=== PATIENT | male | born 1940 | race African-American/Black ===

== ENCOUNTER 2019-10-10 12:35 | Emergency (ER) | payer OTHER, MEDICAID ==
[~2019-10-10] VITALS: Ht 175.3 cm; Wt 120.0 kg
[2019-10-10] MEDS ORDERED: SODIUM CHLORIDE 0.9% 1,000 ML IV ONE (13:15)
[2019-10-10 13:33] LABS: BASOPHILS % 0.2 % (0.0-2.0); EOSINOPHILS % 0.1 % (0.0-5.0); HEMATOCRIT. 36.9 % (42.0-52.0); HEMOGLOBIN. 12.2 g/dL (14.0-18.0); LYMPHOCYTES % 10.9 % (20.0-50.0); MEAN CORPUSCULAR HEMOGLOBIN 32.2 pg (28.0-32.0); MEAN CORPUSCULAR VOLUME 97.4 fL (80.0-94.0); MEAN PLATELET VOLUME 8.3 fl (7.4-10.4); MONOCYTES % 8.7 % (2.0-8.0); NEUTROPHILS % 80.1 % (40.0-76.0); PLATELET 262 x1000/uL (130-400); RED BLOOD CELL COUNT 3.79 mill/uL (4.7-6.1); RED CELL DISTRIBUTION WIDTH 14.6 % (11.6-14.6)
[2019-10-10 13:35] LABS: CHLORIDE 108 mEq/L (98-107); INR 1.2; PROTHROMBIN TIME 12.4 sec (9.6-11.0)
[2019-10-10 13:40] LABS: ETHANOL BLOOD < 10 mg/dL
[2019-10-10] MEDS ORDERED: LORAZEPAM 0.5MG TABLET PO ONE (14:15)
[2019-10-10] MEDS ORDERED: ASPIRIN 81MG TABLET PO ONE (14:15)
[2019-10-10 14:42] LABS: *COCAINE SCREEN URINE NEGATIVE (NEGATIVE); METHADONE URINE SCREEN NEGATIVE (NEGATIVE); OPIATES URINE SCREEN NEGATIVE (NEGATIVE)
[2019-10-10 14:43] LABS: *AMPHETAMINES SCREEN URINE NEGATIVE (NEGATIVE); *BARBITURATES SCREEN URINE NEGATIVE (NEGATIVE); *BENZODIAZEPINES SCREEN URINE NEGATIVE (NEGATIVE); CANNABINOID URINE SCREEN NEGATIVE (NEGATIVE); PHENCYCLIDINE URINE SCREEN NEGATIVE (NEGATIVE)
[2019-10-10 17:28] VITALS: BP 148/72
== END 2019-10-10 17:39 | disposition home or self-care (01) ==
LOC: ER 13:00
DX: R00.2 Palpitations (principal); R03.0 Elevated blood-pressure reading, without diagnosis of hypertension; J98.11 Atelectasis
CPT/HCPCS: 36415; 71045; 71275; 80053; 80305; 80320; 83880; 84484; 85025; 85610; 93005; 99284; J7030; G0480

== ENCOUNTER 2019-11-17 14:03 | Emergency (ER) | payer OTHER, MEDICAID ==
[~2019-11-17] VITALS: Ht 177.8 cm; Wt 95.0 kg
[2019-11-17 14:52] LABS: BASOPHILS % 0.8 % (0.0-2.0); EOSINOPHILS % 1.7 % (0.0-5.0); HEMATOCRIT. 37.1 % (42.0-52.0); HEMOGLOBIN. 12.6 g/dL (14.0-18.0); LYMPHOCYTES % 32.1 % (20.0-50.0); MEAN CORPUSCULAR HEMOGLOBIN 31.9 pg (28.0-32.0); MEAN CORPUSCULAR VOLUME 93.7 fL (80.0-94.0); MEAN PLATELET VOLUME 8.4 fl (7.4-10.4); MONOCYTES % 11.6 % (2.0-8.0); NEUTROPHILS % 53.8 % (40.0-76.0); PLATELET 205 x1000/uL (130-400); RED BLOOD CELL COUNT 3.96 mill/uL (4.7-6.1); RED CELL DISTRIBUTION WIDTH 15.6 % (11.6-14.6)
[2019-11-17 15:01] LABS: CHLORIDE 106 mEq/L (98-107); INR 1.1; PARTIAL THROMBOPLASTIN TIME 38.5 sec (23.4-31.0)
[2019-11-17 15:05] LABS: ETHANOL BLOOD < 10 mg/dL
[2019-11-17] MEDS ORDERED: FUROSEMIDE 20MG/2ML VIAL IVP ONE (15:15)
[2019-11-17 18:01] VITALS: BP 163/74
== END 2019-11-17 17:59 | disposition short-term general hospital (02) ==
LOC: ER 14:03 → CANBEDREQ 16:57 → ER 17:59
DX: J44.9 Chronic obstructive pulmonary disease, unspecified (principal); R07.89 Other chest pain; R00.0 Tachycardia, unspecified; I11.9 Hypertensive heart disease without heart failure; I49.49 Other premature depolarization
CPT/HCPCS: 36415; 71045; 80053; 80320; 83880; 84484; 85025; 85610; 85730; 93005; 96374; 99285; J1940; 80305; G0480

== ENCOUNTER 2020-07-05 01:05 | Emergency (ER) | payer OTHER, MEDICAID ==
[~2020-07-05] VITALS: Ht 175.3 cm; Wt 106.0 kg
[2020-07-05 01:57] LABS: BASOPHILS % 0.8 % (0.0-2.0); EOSINOPHILS % 1.8 % (0.0-5.0); HEMOGLOBIN. 11.6 g/dL (14.0-18.0); LYMPHOCYTES % 19.4 % (20.0-50.0); MEAN CORPUSCULAR HEMOGLOBIN 33.6 pg (28.0-32.0); MEAN CORPUSCULAR VOLUME 98.6 fL (80.0-94.0); MEAN PLATELET VOLUME 7.1 fl (7.4-10.4); MONOCYTES % 12.6 % (2.0-8.0); NEUTROPHILS % 65.4 % (40.0-76.0); PLATELET 227 x1000/uL (130-400); RED BLOOD CELL COUNT 3.44 mill/uL (4.7-6.1); RED CELL DISTRIBUTION WIDTH 15.9 % (11.6-14.6)
[2020-07-05 05:56] LABS: CHLORIDE 107 mEq/L (98-107)
[2020-07-05 06:07] VITALS: BP 128/68
[2020-07-05 06:25] LABS: PARTIAL THROMBOPLASTIN TIME 29.1 sec (23.4-31.0); PROTHROMBIN TIME 10.8 sec (9.6-11.0)
== END 2020-07-05 06:28 | disposition home or self-care (01) ==
LOC: ER 01:05
DX: N49.2 Inflammatory disorders of scrotum (principal); J44.9 Chronic obstructive pulmonary disease, unspecified; I11.9 Hypertensive heart disease without heart failure
CPT/HCPCS: 36415; 76870; 80053; 84484; 85025; 93005; 93976; 99285

== ENCOUNTER 2021-01-24 16:51 | Emergency (ER) | payer OTHER, MEDICAID ==
[~2021-01-24] VITALS: Ht 185.4 cm; Wt 136.0 kg
[2021-01-24] MEDS ORDERED: AMLODIPINE 5MG TABLET PO ONE (17:45)
[2021-01-24 18:20] LABS: BASOPHILS % 0.5 % (0.0-2.0); HEMATOCRIT. 37.4 % (42.0-52.0); HEMOGLOBIN. 12.4 g/dL (14.0-18.0); MEAN CORPUSCULAR HEMOGLOBIN 30.8 pg (28.0-32.0); MEAN CORPUSCULAR VOLUME 92.7 fL (80.0-94.0); MEAN PLATELET VOLUME 8.3 fl (7.4-10.4); MONOCYTES % 9.7 % (2.0-8.0); NEUTROPHILS % 60.8 % (40.0-76.0); PLATELET 191 x1000/uL (130-400); RED BLOOD CELL COUNT 4.03 mill/uL (4.7-6.1); RED CELL DISTRIBUTION WIDTH 15.2 % (11.6-14.6)
[2021-01-24 18:27] LABS: CHLORIDE 107 mEq/L (98-107)
[2021-01-24 21:15] VITALS: BP 161/78
[2021-01-24] MEDS ORDERED: AMLO5TAB88 MT (21:57)
== END 2021-01-25 00:31 | disposition home or self-care (01) ==
LOC: ER 16:51
DX: R53.1 Weakness (principal); R42 Dizziness and giddiness; R10.9 Unspecified abdominal pain; I10 Essential (primary) hypertension; J45.909 Unspecified asthma, uncomplicated; Z86.59 Personal history of other mental and behavioral disorders
CPT/HCPCS: 36415; 80053; 83880; 84484; 85025; 93005; 99284

== ENCOUNTER 2021-08-06 09:07 | Inpatient (IN) | payer OTHER, MEDICAID ==
[~2021-08-06] VITALS: Ht 172.7 cm; Wt 106.6 kg
[~2021-08-06 09:07] MED LIST: AMLO5TAB88 MT
[2021-08-06] MEDS ORDERED: LEVETIRACETAM 1000MG PREMIX 100 ML IV ONE (09:30)
[2021-08-06 10:36] LABS: BASOPHILS % 0.4 % (0.0-2.0); EOSINOPHILS % 1.3 % (0.0-5.0); HEMATOCRIT. 34.3 % (42.0-52.0); HEMOGLOBIN. 11.6 g/dL (14.0-18.0); MEAN CORPUSCULAR HEMOGLOBIN 30.8 pg (28.0-32.0); MEAN CORPUSCULAR VOLUME 91.3 fL (80.0-94.0); MEAN PLATELET VOLUME 8.5 fl (7.4-10.4); MONOCYTES % 13.6 % (2.0-8.0); NEUTROPHILS % 68.7 % (40.0-76.0); PLATELET 226 x1000/uL (130-400); RED BLOOD CELL COUNT 3.76 mill/uL (4.7-6.1); RED CELL DISTRIBUTION WIDTH 17.3 % (11.6-14.6)
[2021-08-06 10:42] LABS: CHLORIDE 107 mEq/L (98-107)
[2021-08-06 10:49] LABS: ETHANOL BLOOD < 10 mg/dL
[2021-08-06] MEDS ORDERED: SODIUM CHLORIDE 0.9% 1,000 ML IV ONE (11:45)
[2021-08-06 13:11] LABS: CLARITY URINE CLOUDY (CLEAR); COLOR URINE YELLOW (YELLOW); KETONES URINE NEGATIVE (NEGATIVE); LEUKOCYTE ESTERASE URINE 3+ (NEGATIVE); NITRITE URINE POSITIVE (NEGATIVE); OCCULT BLOOD URINE TRACE (NEGATIVE); PH URINE 6.5 (4.5-8.0); PROTEIN URINE NEGATIVE (NEGATIVE); SPECIFIC GRAVITY URINE 1.012 (1.005-1.030); UROBILINOGEN URINE 0.2 E.U./dL (0.2-1.0)
[2021-08-06 14:38] LABS: *AMPHETAMINES SCREEN URINE NEGATIVE (NEGATIVE); *BARBITURATES SCREEN URINE NEGATIVE (NEGATIVE); *BENZODIAZEPINES SCREEN URINE NEGATIVE (NEGATIVE); *COCAINE SCREEN URINE NEGATIVE (NEGATIVE); METHADONE URINE SCREEN NEGATIVE (NEGATIVE); OPIATES URINE SCREEN NEGATIVE (NEGATIVE)
[2021-08-06 14:39] LABS: CANNABINOID URINE SCREEN NEGATIVE (NEGATIVE); PHENCYCLIDINE URINE SCREEN NEGATIVE (NEGATIVE)
[2021-08-06 15:11] LABS: CREATINE KINASE 232 IU/L (39-308)
[2021-08-06 16:02] LABS: INR 1.1; PROTHROMBIN TIME 11.9 sec (9.6-11.0)
[2021-08-06 16:12] LABS: CHLORIDE 110 mEq/L (98-107)
[2021-08-06 16:22] LABS: CREATINE KINASE 176 IU/L (39-308)
[2021-08-06] MEDS ORDERED: CEFTRIAXONE 1 G PREMIX 50 ML IV NR (17:00)
[2021-08-06 20:00] VITALS: BP 170/96
[2021-08-06 20:38] VITALS: BP 170/96
[2021-08-06] MEDS ORDERED: ONDANSETRON HCL 4MG/2ML INJ IV PRN (20:45)
[2021-08-06] MEDS ORDERED: IPRATROPIUM/ALBUTEROL 0.5-3(2.5)MG/3ML NEB HHN PRN (20:45)
[2021-08-06] MEDS ORDERED: MAGNESIUM HYDROXIDE 400MG/5ML 30ML UDC PO PRN (20:45)
[2021-08-06] MEDS ORDERED: GUAIFENESIN 200MG/10ML SUGAR FREE UDC PO PRN (20:45)
[2021-08-06] MEDS ORDERED: BUDESONIDE 0.5MG/2ML NEB HHN SCH (20:45)
[2021-08-06] MEDS ORDERED: DIPHENHYDRAMINE 50MG/ML VIAL IV PRN (20:45)
[2021-08-06] MEDS ORDERED: CLONIDINE 0.1MG TABLET PO PRN (20:45)
[2021-08-06] MEDS ORDERED: ACETAMINOPHEN 325MG TABLET PO PRN ×2 (20:45)
[2021-08-06] MEDS ORDERED: PIPERACILLIN/TAZ 3.375G PREMIX 50 ML IV SCH (22:00)
[2021-08-06] MEDS ORDERED: ENOXAPARIN 40MG/0.4ML SYR SUBCUT SCH (22:00)
[2021-08-06] MEDS: ATORVASTATIN CALCIUM 40MG TABLET PO SCH (22:36)
[2021-08-06] MEDS: QUETIAPINE FUMARATE 25MG TABLET PO SCH (22:37)
[2021-08-06] MEDS: SODIUM CHLORIDE 0.9% INJ 3ML FLUSH IVF SCH (22:37)
[2021-08-06] MEDS ORDERED: PIPERACILLIN/TAZOBACTAM 3.375G in DEXT 5% WATER 50ML IV SCH (23:00)
[2021-08-06] MEDS ORDERED: *PATIENT'S OWN MEDICATION STORAGE XX SCH (23:45)
[2021-08-07] VITALS (8 sets, daily range): BP systolic 68–168; BP diastolic 59–74
[2021-08-07] MEDS ORDERED: ATOR-2 PO (00:22)
[2021-08-07] MEDS ORDERED: ASPI-1497 PO (00:22)
[2021-08-07] MEDS ORDERED: LISI-186 PO (00:22)
[2021-08-07] MEDS ORDERED: QUET25TA PO (00:22)
[2021-08-07] MEDS ORDERED: FLUT1AER4 INH (00:23)
[2021-08-07] MEDS ORDERED: TERA5CAP4 MT (00:23)
[2021-08-07] MEDS ORDERED: PIPERACILLIN/TAZOBACTAM 3.375G in DEXT 5% WATER 50ML IV SCH (06:00)
[2021-08-07] MEDS: SODIUM CHLORIDE 0.9% INJ 3ML FLUSH IVF SCH ×2 (06:00→21:58)
[2021-08-07] MEDS: PIPERACILLIN/TAZOBACTAM 3.375G in DEXT 5% WATER 50ML IV SCH ×2 (08:52→19:09)
[2021-08-07] MEDS: DOCUSATE SODIUM 100MG CAPSULE PO SCH ×2 (08:53→17:34)
[2021-08-07] MEDS: QUETIAPINE FUMARATE 25MG TABLET PO SCH ×2 (08:54→21:56)
[2021-08-07] MEDS ORDERED: AMLODIPINE 5MG TABLET PO SCH (09:00)
[2021-08-07] MEDS ORDERED: ASPIRIN 81MG EC TABLET PO SCH (09:00)
[2021-08-07] MEDS ORDERED: LISINOPRIL 5MG TABLET PO SCH (09:00)
[2021-08-07] MEDS: TERAZOSIN HCL 5MG CAPSULE PO SCH ×2 (10:29→17:34)
[2021-08-07] MEDS ORDERED: ENOXAPARIN 30MG/0.3ML SYR SUBCUT SCH (21:00)
[2021-08-07] MEDS: ATORVASTATIN CALCIUM 40MG TABLET PO SCH (21:56)
== END 2021-08-07 23:35 | disposition short-term general hospital (02) | DRG 872 ==
LOC: ER 09:07 → EDBEDREQ 17:16 → EDBEDREQTM 17:16 → ENRESERV 19:10 → 6WST 20:57
PROVIDERS: ADMIT Internal Medicine; ATTEND Internal Medicine
DX: A41.9 Sepsis, unspecified organism (principal); N39.0 Urinary tract infection, site not specified; K61.1 Rectal abscess; I50.32 Chronic diastolic (congestive) heart failure; J44.9 Chronic obstructive pulmonary disease, unspecified; I50.9 Heart failure, unspecified; I11.0 Hypertensive heart disease with heart failure; L73.2 Hidradenitis suppurativa; E78.00 Pure hypercholesterolemia, unspecified; M19.90 Unspecified osteoarthritis, unspecified site; N40.0 Benign prostatic hyperplasia without lower urinary tract symptoms; M10.9 Gout, unspecified; I25.10 Atherosclerotic heart disease of native coronary artery without angina pectoris; R56.9 Unspecified convulsions; Z20.822 Contact with and (suspected) exposure to COVID-19; F99 Mental disorder, not otherwise specified; I27.20 Pulmonary hypertension, unspecified; R62.7 Adult failure to thrive; Z68.35 Body mass index [BMI] 35.0-35.9, adult
CPT/HCPCS: 36415; 71045; 80053; 80305; 80320; 81003; 82550; 82962; 83605; 84145; 84484; 85025; 87077; 87186; 87426; 93005; 93306; 93970; 99285; C1893; J0696; J1650; J1953; J2543; J7030; J7060; J7626; G0480

== ENCOUNTER 2021-08-22 11:42 | Emergency (ER) | payer OTHER, MEDICAID ==
[~2021-08-22] VITALS: Ht 185.4 cm; Wt 91.0 kg
[~2021-08-22 11:42] MED LIST changes: +ASPI-1497 PO; +ATOR-2 PO; +FLUT1AER4 INH; +LISI-186 PO; +QUET25TA PO; +TERA5CAP4 MT
[2021-08-22 15:04] LABS: BASOPHILS % 0.5 % (0.0-2.0); EOSINOPHILS % 1.1 % (0.0-5.0); HEMATOCRIT. 36.6 % (42.0-52.0); LYMPHOCYTES % 11.2 % (20.0-50.0); MEAN CORPUSCULAR HEMOGLOBIN 29.6 pg (28.0-32.0); MEAN CORPUSCULAR VOLUME 90.5 fL (80.0-94.0); MEAN PLATELET VOLUME 8.4 fl (7.4-10.4); MONOCYTES % 10.2 % (2.0-8.0); PLATELET 210 x1000/uL (130-400); RED BLOOD CELL COUNT 4.04 mill/uL (4.7-6.1); RED CELL DISTRIBUTION WIDTH 17.3 % (11.6-14.6)
[2021-08-22 15:09] LABS: CHLORIDE 109 mEq/L (98-107)
[2021-08-22] MEDS ORDERED: DOXYCYCLINE HYCLATE 100 MG/VIAL IV ONE (17:30)
[2021-08-22] MEDS ORDERED: FUROSEMIDE 20MG/2ML VIAL IVP ONE (17:30)
[2021-08-22] MEDS ORDERED: CEFTRIAXONE 1 G PREMIX 50 ML IV ONE (17:30)
[2021-08-22] MEDS ORDERED: DOXYCYCLINE 100MG in DEXTROSE 5% WATER 100ML IV NR (17:34)
[2021-08-22 22:59] VITALS: BP 153/83
== END 2021-08-22 23:59 | disposition short-term general hospital (02) ==
LOC: ER 11:42 → CANBEDREQ 08-23 05:22
DX: I11.0 Hypertensive heart disease with heart failure (principal); I50.9 Heart failure, unspecified; J45.909 Unspecified asthma, uncomplicated; I48.91 Unspecified atrial fibrillation; Z20.822 Contact with and (suspected) exposure to COVID-19; Z79.01 Long term (current) use of anticoagulants; Z79.82 Long term (current) use of aspirin
CPT/HCPCS: 36415; 71045; 80053; 83880; 84484; 85025; 87426; 93005; 96365; 96375; 99285; J0696; J1940; J3490; J7060

== ENCOUNTER 2021-09-21 01:38 | Emergency (ER) | payer OTHER, MEDICAID ==
[~2021-09-21] VITALS: Ht 182.9 cm; Wt 84.0 kg
[2021-09-21] MEDS ORDERED: CEFTRIAXONE 1 G PREMIX 50 ML IV ONE (02:00)
[2021-09-21] MEDS ORDERED: FUROSEMIDE 40MG/4ML VIAL IVP ONE ×2 (02:00→02:15)
[2021-09-21] MEDS ORDERED: AZITHROMYCIN 500MG/250ML 250 ML IV ONE (02:00)
[2021-09-21 02:52] LABS: BASOPHILS % 0.2 % (0.0-2.0); EOSINOPHILS % 0.9 % (0.0-5.0); HEMATOCRIT. 34.6 % (42.0-52.0); HEMOGLOBIN. 11.4 g/dL (14.0-18.0); LYMPHOCYTES % 16.6 % (20.0-50.0); MEAN CORPUSCULAR VOLUME 91.1 fL (80.0-94.0); MEAN PLATELET VOLUME 10.2 fl (7.4-10.4); MONOCYTES % 7.4 % (2.0-8.0); NEUTROPHILS % 74.9 % (40.0-76.0); PLATELET 112 x1000/uL (130-400); RED CELL DISTRIBUTION WIDTH 18.2 % (11.6-14.6)
[2021-09-21 02:58] LABS: CHLORIDE 111 mEq/L (98-107)
[2021-09-21 03:03] LABS: INR 1.2; PROTHROMBIN TIME 13.1 sec (9.6-11.0)
[2021-09-21 03:07] LABS: CREATINE KINASE 75 IU/L (39-308)
[2021-09-21 05:09] LABS: CLARITY URINE CLOUDY (CLEAR); COLOR URINE YELLOW (YELLOW); KETONES URINE NEGATIVE (NEGATIVE); LEUKOCYTE ESTERASE URINE 3+ (NEGATIVE); NITRITE URINE POSITIVE (NEGATIVE); OCCULT BLOOD URINE 1+ (NEGATIVE); PROTEIN URINE 1+ (NEGATIVE); SPECIFIC GRAVITY URINE 1.013 (1.005-1.030); UROBILINOGEN URINE 0.2 E.U./dL (0.2-1.0)
[2021-09-21] MEDS ORDERED: IOHEXOL-350 100 ML BOTTLE ONE (05:58)
[2021-09-21 09:42] VITALS: BP 122/63
== END 2021-09-21 09:58 | disposition short-term general hospital (02) ==
LOC: ER 02:13 → CANBEDREQ 06:44 → ER 09:58
DX: J18.9 Pneumonia, unspecified organism (principal); R04.2 Hemoptysis; Z20.822 Contact with and (suspected) exposure to COVID-19; I10 Essential (primary) hypertension
CPT/HCPCS: 36415; 71045; 71275; 80053; 81003; 82550; 83605; 83880; 84145; 84484; 85025; 85610; 87040; 87077; 87086; 87186; 87426; 87804; 93005; 96365; 96368; 96375; 99285; J0456; J0696; J1940; Q9967

== ENCOUNTER 2022-09-15 15:03 | Emergency (ER) | payer OTHER, MEDICAID ==
[~2022-09-15] VITALS: Ht 185.4 cm; Wt 100.0 kg
[2022-09-15] MEDS ORDERED: IOHEXOL-350 100 ML BOTTLE ONE (17:26)
[2022-09-15 18:10] LABS: BASOPHILS % 0.3 % (0.0-2.0); EOSINOPHILS % 1.5 % (0.0-5.0); HEMATOCRIT. 41.2 % (42.0-52.0); HEMOGLOBIN. 13.7 g/dL (14.0-18.0); LYMPHOCYTES % 15.9 % (20.0-50.0); MEAN CORPUSCULAR HEMOGLOBIN 32.2 pg (28.0-32.0); MEAN CORPUSCULAR VOLUME 96.4 fL (80.0-94.0); MEAN PLATELET VOLUME 8.4 fl (7.4-10.4); MONOCYTES % 11.4 % (2.0-8.0); NEUTROPHILS % 70.9 % (40.0-76.0); PLATELET 205 x1000/uL (130-400); RED BLOOD CELL COUNT 4.27 mill/uL (4.7-6.1); RED CELL DISTRIBUTION WIDTH 14.2 % (11.6-14.6)
[2022-09-15 18:15] LABS: CHLORIDE 104 mEq/L (98-107)
[2022-09-15] MEDS ORDERED: ACETAMINOPHEN 325MG TABLET PO ONE (18:15)
[2022-09-15 18:26] LABS: ETHANOL BLOOD < 10 mg/dL
[2022-09-15 20:35] LABS: CLARITY URINE TURBID (CLEAR); COLOR URINE YELLOW (YELLOW); KETONES URINE 1+ (NEGATIVE); LEUKOCYTE ESTERASE URINE 3+ (NEGATIVE); NITRITE URINE POSITIVE (NEGATIVE); OCCULT BLOOD URINE 1+ (NEGATIVE); PROTEIN URINE 2+ (NEGATIVE); SPECIFIC GRAVITY URINE 1.037 (1.005-1.030); UROBILINOGEN URINE 0.2 E.U./dL (0.2-1.0)
[2022-09-15 20:50] LABS: *AMPHETAMINES SCREEN URINE NEGATIVE (NEGATIVE); *BARBITURATES SCREEN URINE NEGATIVE (NEGATIVE); *BENZODIAZEPINES SCREEN URINE NEGATIVE (NEGATIVE); *COCAINE SCREEN URINE NEGATIVE (NEGATIVE); CANNABINOID URINE SCREEN NEGATIVE (NEGATIVE); METHADONE URINE SCREEN NEGATIVE (NEGATIVE); OPIATES URINE SCREEN NEGATIVE (NEGATIVE); PHENCYCLIDINE URINE SCREEN NEGATIVE (NEGATIVE)
[2022-09-15] MEDS ORDERED: LIDOCAINE 5% PATCH TOP SCH (21:00)
[2022-09-16 08:50] VITALS: BP 166/67
[2022-09-16] MEDS ORDERED: LISINOPRIL 5MG TABLET PO ONE (09:30)
== END 2022-09-16 08:56 | disposition short-term general hospital (02) ==
LOC: ER 15:03 → EDBEDREQTM 17:39 → EDBEDREQ 17:39 → EDBEDREQSVC 17:39 → ER 09-16 08:56
DX: I63.9 Cerebral infarction, unspecified (principal); I10 Essential (primary) hypertension; J45.909 Unspecified asthma, uncomplicated; Z20.822 Contact with and (suspected) exposure to COVID-19; Z79.82 Long term (current) use of aspirin
CPT/HCPCS: 36415; 70450; 70496; 70498; 71045; 80053; 80305; 80320; 81003; 82962; 83880; 84484; 85025; 87077; 87086; 87186; 87426; 93005; 99291; Q9967; G0480

== ENCOUNTER 2024-04-01 06:12 | Emergency (ER) | payer OTHER ==
[~2024-04-01] VITALS: Ht 177.8 cm; Wt 91.0 kg
[2024-04-01 06:16] VITALS: O2SAT 99
[2024-04-01 07:19] LABS: HEMATOCRIT. 26.8 % (42.0-52.0); HEMOGLOBIN. 8.8 g/dL (14.0-18.0); MEAN CORPUSCULAR HEMOGLOBIN 30.3 pg (28.0-32.0); MEAN CORPUSCULAR HGB CONC 32.9 g/dL (31.0-37.0); MEAN CORPUSCULAR VOLUME 92.2 fL (80.0-94.0); MEAN PLATELET VOLUME 8.3 fl (7.4-10.4); PLATELET 284 x1000/uL (130-400); WHITE BLOOD COUNT 6.2 x1000/uL (4.5-11.0)
[2024-04-01 07:22] LABS: INR 1.2; PROTHROMBIN TIME 13.1 sec (9.6-11.0)
[2024-04-01 07:26] LABS: DIFFERENTIAL COMMENT 1
[2024-04-01 07:27] LABS: CHLORIDE 105 mEq/L (98-107); POTASSIUM 4.5 mEq/L (3.5-5.1); SODIUM 141 mEq/L (136-145)
[2024-04-01 07:28] LABS: CALCIUM 8.5 mg/dL (8.7-10.4); CARBON DIOXIDE 30 mEq/L (21-32)
[2024-04-01 07:33] LABS: CREATININE 1.4 mg/dL (0.6-1.3); GLUCOSE 109 mg/dL (70-105); UREA NITROGEN BLOOD 26 mg/dL (9-23)
[2024-04-01 07:35] LABS: PHOSPHORUS 3.2 mg/dL (2.5-4.9); TROPONIN I HIGH SENSITIVITY 15 ng/L (3.0-53)
[2024-04-01 09:59] LABS: TROPONIN I HIGH SENSITIVITY 13 ng/L (3.0-53)
[2024-04-01 12:53] LABS: ANISOCYTOSIS 1+; PLATELET ESTIMATE NORMAL
[2024-04-01 13:30] VITALS: BP 141/61; PULSE 63; RESP 17; TEMP 98.4
== END 2024-04-01 13:08 | disposition short-term general hospital (02) ==
LOC: ER 06:30 → UNDOADMIN 09:44 → 5WST 09:44 → EDBEDREQ 09:46 → EDBEDREQTM 09:46 → UNDODISIN 12:09
DX: R55 Syncope and collapse (principal); D64.9 Anemia, unspecified; J45.909 Unspecified asthma, uncomplicated; F03.90 Unspecified dementia, unspecified severity, without behavioral disturbance, psychotic disturbance, mood disturbance, and anxiety; I10 Essential (primary) hypertension
CPT/HCPCS: 36415; 71045; 80048; 83735; 83880; 84100; 84484; 85025; 93005; 99285

== ENCOUNTER 2024-08-16 08:03 | Inpatient (IN) | payer OTHER, MEDICAID ==
[2024-08-15 20:50] VITALS: BP 177/83; PULSE 70; RESP 14; TEMP 36.6404
[~2024-08-16] VITALS: Ht 177.8 cm; Wt 89.8 kg
[2024-08-16] MEDS: METHYLPREDNISOLONE SOD SUCC 125MG/2ML (ACT-O-VIAL) IV STA (09:03)
[2024-08-16 09:22] LABS: BASOPHILS % 0.6 % (0.0-2.0); HEMATOCRIT. 31.7 % (42.0-52.0); HEMOGLOBIN. 10.4 g/dL (14.0-18.0); LYMPHOCYTES % 17.9 % (20.0-50.0); MEAN CORPUSCULAR HEMOGLOBIN 27.4 pg (28.0-32.0); MEAN CORPUSCULAR HGB CONC 32.8 g/dL (31.0-37.0); MEAN CORPUSCULAR VOLUME 83.5 fL (80.0-94.0); MEAN PLATELET VOLUME 8.3 fl (7.4-10.4); MONOCYTES % 9.1 % (2.0-8.0); NEUTROPHILS % 70.4 % (40.0-76.0); PLATELET 199 x1000/uL (130-400); RED BLOOD CELL COUNT 3.79 mill/uL (4.7-6.1); RED CELL DISTRIBUTION WIDTH 20.5 % (11.6-14.6); WHITE BLOOD COUNT 8.2 x1000/uL (4.5-11.0)
[2024-08-16 09:39] VITALS: PULSE 65; RESP 20; O2SAT 99
[2024-08-16 09:39] LABS: CARBON DIOXIDE 27 mEq/L (21-32); CHLORIDE 110 mEq/L (98-107); POTASSIUM 3.8 mEq/L (3.5-5.1); SODIUM 142 mEq/L (136-145)
[2024-08-16] MEDS: IPRATROPIUM BROMIDE (0.02%) 0.5MG/2.5ML NEB HHN STA (09:39)
[2024-08-16] MEDS: ALBUTEROL (0.083%) 2.5MG/3ML NEB HHN SCH (09:39)
[2024-08-16 09:40] LABS: CALCIUM 8.8 mg/dL (8.7-10.4)
[2024-08-16 09:45] LABS: CREATININE 0.9 mg/dL (0.6-1.3); GLUCOSE 115 mg/dL (70-105); TROPONIN I HIGH SENSITIVITY 16 ng/L (3.0-53); UREA NITROGEN BLOOD 14 mg/dL (9-23)
[2024-08-16 09:59] VITALS: PULSE 67; RESP 20; O2SAT 100
[2024-08-16 11:01] LABS: TROPONIN I HIGH SENSITIVITY 15 ng/L (3.0-53)
[2024-08-16] MEDS ORDERED: NA PHOS,M-B/NA PHOS,DI-BA ENEMA 118ML PR PRN (11:15)
[2024-08-16] MEDS ORDERED: ACETAMINOPHEN 325MG TABLET PO PRN (11:15)
[2024-08-16] MEDS ORDERED: DOCUSATE SODIUM 100MG CAPSULE PO PRN (11:15)
[2024-08-16] MEDS ORDERED: LORAZEPAM 0.5MG TABLET PO PRN (11:15)
[2024-08-16] MEDS ORDERED: MAGNESIUM/ALUMINUM HYDROXIDE/SIMETHICONE 30ML UDC PO PRN (11:15)
[2024-08-16] MEDS ORDERED: GUAIFENESIN 200MG/10ML SUGAR FREE UDC PO PRN (11:15)
[2024-08-16] MEDS ORDERED: IPRATROPIUM/ALBUTEROL 0.5-3(2.5)MG/3ML NEB HHN PRN (11:15)
[2024-08-16] MEDS: IPRATROPIUM/ALBUTEROL 0.5-3(2.5)MG/3ML NEB HHN SCH (12:00)
[2024-08-16 12:08] LABS: IRON 40 ug/dL (65-175)
[2024-08-16 12:09] LABS: TRIGLYCERIDE 48 mg/dL (0-150)
[2024-08-16 12:10] LABS: LDL CHOLESTEROL 56 mg/dL (5-100)
[2024-08-16 12:11] LABS: ALANINE AMINOTRANSFERASE 7 IU/L (10-49); ALBUMIN 3.8 g/dL (3.2-4.8); ASPARTATE AMINOTRANSFERASE 16 IU/L (<34); BILIRUBIN DIRECT 0.1 mg/dL (<=3.0); BILIRUBIN TOTAL 0.5 mg/dL (0.1-1.0); CHOLESTEROL 129 mg/dL (<200); HDL CHOLESTEROL 61 mg/dL (>55); PHOSPHORUS 3.1 mg/dL (2.5-4.9); PROTEIN TOTAL 6.7 g/dL (6.0-8.3); TOTAL IRON BINDING CAPACITY 259 ug/dl (250-425)
[2024-08-16 12:12] LABS: PROTHROMBIN TIME 11.6 sec (9.6-11.0)
[2024-08-16 12:15] LABS: T4 FREE 1.36 ng/dL (0.89-1.76); THYROID STIMULATING HORMONE 0.63 uIU/mL (0.55-4.78)
[2024-08-16] MEDS: ACETAMINOPHEN 325MG TABLET PO PRN (12:22)
[2024-08-16] MEDS: AMLODIPINE 5MG TABLET PO SCH (12:25)
[2024-08-16 12:27] LABS: CLARITY URINE CLEAR (CLEAR); COLOR URINE YELLOW (YELLOW); GLUCOSE URINE NEGATIVE (NEGATIVE); KETONES URINE NEGATIVE (NEGATIVE); LEUKOCYTE ESTERASE URINE NEGATIVE (NEGATIVE); NITRITE URINE NEGATIVE (NEGATIVE); OCCULT BLOOD URINE NEGATIVE (NEGATIVE); PROTEIN URINE NEGATIVE (NEGATIVE); SPECIFIC GRAVITY URINE 1.011 (1.005-1.030); UROBILINOGEN URINE 0.2 E.U./dL (0.2-1.0)
[2024-08-16 12:42] LABS: *AMPHETAMINES SCREEN URINE NEGATIVE (NEGATIVE); *BARBITURATES SCREEN URINE NEGATIVE (NEGATIVE); *BENZODIAZEPINES SCREEN URINE NEGATIVE (NEGATIVE); *COCAINE SCREEN URINE NEGATIVE (NEGATIVE); CANNABINOID URINE SCREEN NEGATIVE (NEGATIVE); ECSTASY MDMA SCREEN URINE NEGATIVE (NEGATIVE); METHADONE URINE SCREEN NEGATIVE (NEGATIVE); OPIATES URINE SCREEN NEGATIVE (NEGATIVE); PHENCYCLIDINE URINE SCREEN NEGATIVE (NEGATIVE)
[2024-08-16] MEDS ORDERED: AZITHROMYCIN 500MG/250ML 250 ML IV SCH (13:00)
[2024-08-16] MEDS: CEFTRIAXONE 1GM/50ML 50 ML IV SCH (14:25)
[2024-08-16] MEDS: PANTOPRAZOLE SODIUM 40 MG/VIAL IV SCH (14:25)
[2024-08-16] MEDS: LISINOPRIL 10MG TABLET PO SCH (14:26)
[2024-08-16] MEDS: ENOXAPARIN 40MG/0.4ML SYR SUBCUT SCH (14:27)
[2024-08-16] MEDS ORDERED: ALBUTEROL (0.083%) 2.5MG/3ML NEB HHN PRN (15:15)
[2024-08-16] MEDS: METHYLPREDNISOLONE SOD SUCC 40MG/ML (ACT-O-VIAL) IV SCH (16:09)
[2024-08-16 16:17] LABS: CREATINE KINASE MB FRACTION 3.7 ng/mL (0.5-3.6); LACTIC ACID 3.1 mmol/L (0.4-2.0)
[2024-08-16 16:35] VITALS: PULSE 84; RESP 16; O2SAT 98
[2024-08-16 20:16] VITALS: PULSE 84; RESP 18; O2SAT 98
[2024-08-16] MEDS: TERAZOSIN HCL 5MG CAPSULE PO SCH (21:14)
[2024-08-16] MEDS: ATORVASTATIN CALCIUM 20MG TABLET PO SCH (21:14)
[2024-08-16] MEDS: QUETIAPINE FUMARATE 25MG TABLET PO SCH (21:14)
[2024-08-16 22:41] VITALS: BP 146/66; PULSE 60; RESP 14; O2SAT 97
[2024-08-17] VITALS (9 sets, daily range): BP systolic 129–175; BP diastolic 41–83; PULSE 60–91; RESP 13–22; TEMP 36.33624–37.00296; O2SAT 95–100
[2024-08-17 00:19] LABS: CREATINE KINASE MB FRACTION 4.3 ng/mL (0.5-3.6)
[2024-08-17 07:55] LABS: CHLORIDE 107 mEq/L (98-107); POTASSIUM 3.9 mEq/L (3.5-5.1); SODIUM 142 mEq/L (136-145)
[2024-08-17 07:56] LABS: CARBON DIOXIDE 25 mEq/L (21-32)
[2024-08-17 07:57] LABS: CALCIUM 8.9 mg/dL (8.7-10.4)
[2024-08-17 08:01] LABS: GLUCOSE 139 mg/dL (70-105)
[2024-08-17 08:02] LABS: UREA NITROGEN BLOOD 12 mg/dL (9-23)
[2024-08-17 08:04] LABS: BASOPHILS % 0.1 % (0.0-2.0); HEMATOCRIT. 30.1 % (42.0-52.0); HEMOGLOBIN. 9.4 g/dL (14.0-18.0); LYMPHOCYTES % 9.1 % (20.0-50.0); MEAN CORPUSCULAR HEMOGLOBIN 26.2 pg (28.0-32.0); MEAN CORPUSCULAR HGB CONC 31.4 g/dL (31.0-37.0); MEAN CORPUSCULAR VOLUME 83.5 fL (80.0-94.0); MEAN PLATELET VOLUME 8.4 fl (7.4-10.4); MONOCYTES % 2.7 % (2.0-8.0); NEUTROPHILS % 88.1 % (40.0-76.0); PLATELET 191 x1000/uL (130-400); RED CELL DISTRIBUTION WIDTH 20.3 % (11.6-14.6); WHITE BLOOD COUNT 7.1 x1000/uL (4.5-11.0)
[2024-08-17] MEDS: COLCHICINE 0.6MG TABLET PO SCH (08:44)
[2024-08-17 10:45] LABS: BG BASE EXCESS 0.8 mmol/L (-2.0-3.0); BG CARBOXYHEMOGLOBIN 0.2 % (0.5-1.5); BG DEOXYHEMOGLOBIN 6.8 % (0.0-5.0); BG FRACTION INSPIRED OXYGEN 21; BG HCO3 ACT 24.4 mmol/L (21.0-28.0); BG METHEMOGLOBIN 0.3 % (0.5-1.5); BG OXYGEN SATURATION 93.2 % (94.0-98.0); BG OXYHEMOGLOBIN 92.7 % (94.0-98.0); BG PCO2 35.4 mmHg (35.0-48.0); BG PH 7.456 (7.350-7.450); BG PO2 65.4 mmHg (83.0-108.0); BG SAMPLE SITE RIGHT RADIAL; BG TOTAL HEMOGLOBIN 11.3 g/dL (13.5-17.5); BG VENT MODE ROOM AIR
[2024-08-17 11:53] LABS: LACTIC ACID 2.7 mmol/L (0.4-2.0)
[2024-08-17] MEDS ORDERED: AMOX1TAB16 MT (16:53)
[2024-08-17] MEDS ORDERED: ALBU90AE3 INH (17:08)
[2024-08-17] MEDS ORDERED: OMEP20CA14 PO (17:08)
[2024-08-17] MEDS ORDERED: LISI10TA26 PO (17:08)
[2024-08-17] MEDS ORDERED: AMLO10TA80 PO (17:08)
[2024-08-17] MEDS ORDERED: DABI110C PO (17:08)
[2024-08-17] MEDS ORDERED: HYDR12.54 MT (17:08)
[2024-08-17] MEDS ORDERED: FLUT1BLS9 IH (17:08)
[2024-08-17] MEDS ORDERED: FERR325T30 PO (17:08)
[2024-08-17] MEDS ORDERED: ATOR-2 MT (17:08)
[2024-08-17] MEDS ORDERED: SALINE NAS (17:08)
[2024-08-17] MEDS ORDERED: TERA10CA4 PO (17:08)
[2024-08-17] MEDS: CLONIDINE 0.1MG TABLET PO PRN (17:29)
[2024-08-17] MEDS: IPRATROPIUM/ALBUTEROL 0.5-3(2.5)MG/3ML NEB HHN SCH (21:50)
[2024-08-18] VITALS (10 sets, daily range): BP systolic 128–174; BP diastolic 51–94; PULSE 54–74; RESP 12–16; TEMP 36.3918–36.89184; O2SAT 96–98
[2024-08-18 06:41] LABS: HEMATOCRIT 30.3 % (42.0-52.0); HEMOGLOBIN 9.8 g/dL (14.0-18.0); MEAN CORPUSCULAR HEMOGLOBIN 26.7 pg (28.0-32.0); MEAN CORPUSCULAR HGB CONC 32.3 g/dL (31.0-37.0); MEAN CORPUSCULAR VOLUME 82.6 fL (80.0-94.0); PLATELET 186 x1000/uL (130-400); RED BLOOD CELL COUNT 3.67 mill/uL (4.7-6.1); RED CELL DISTRIBUTION WIDTH 20.5 % (11.6-14.6); WHITE BLOOD COUNT 9.6 x1000/uL (4.5-11.0)
[2024-08-18 06:43] LABS: CARBON DIOXIDE 27 mEq/L (21-32); CHLORIDE 109 mEq/L (98-107); POTASSIUM 3.8 mEq/L (3.5-5.1); SODIUM 144 mEq/L (136-145)
[2024-08-18 06:45] LABS: CALCIUM 8.8 mg/dL (8.7-10.4)
[2024-08-18 06:49] LABS: GLUCOSE 105 mg/dL (70-105)
[2024-08-18 06:50] LABS: UREA NITROGEN BLOOD 15 mg/dL (9-23)
[2024-08-18 06:52] LABS: PHOSPHORUS 3.1 mg/dL (2.5-4.9)
[2024-08-18] MEDS: PREDNISONE 20MG TABLET PO SCH (10:10)
[2024-08-18] MEDS ORDERED: P20 PO (12:14)
[2024-08-19] MEDS ORDERED: PANTOPRAZOLE 40MG DR TABLET PO SCH (06:50)
== END 2024-08-18 15:00 | disposition home health service (06) | DRG 871 ==
LOC: ER 08:03 → 5WST 10:31 → EDBEDREQTM 10:34 → EDBEDREQ 10:34 → 3WST 20:33
PROVIDERS: ADMIT Preventive Medicine Clinical Informatics; ATTEND Preventive Medicine Clinical Informatics
DX: A41.9 Sepsis, unspecified organism (principal); J69.0 Pneumonitis due to inhalation of food and vomit; R53.2 Functional quadriplegia; J44.1 Chronic obstructive pulmonary disease with (acute) exacerbation; J45.901 Unspecified asthma with (acute) exacerbation; J98.11 Atelectasis; J44.0 Chronic obstructive pulmonary disease with (acute) lower respiratory infection; I11.9 Hypertensive heart disease without heart failure; N40.0 Benign prostatic hyperplasia without lower urinary tract symptoms; D50.9 Iron deficiency anemia, unspecified; F03.90 Unspecified dementia, unspecified severity, without behavioral disturbance, psychotic disturbance, mood disturbance, and anxiety; Z20.822 Contact with and (suspected) exposure to COVID-19; D72.10 Eosinophilia, unspecified; M10.9 Gout, unspecified; Z86.73 Personal history of transient ischemic attack (TIA), and cerebral infarction without residual deficits; Z86.711 Personal history of pulmonary embolism; Z74.01 Bed confinement status; I25.2 Old myocardial infarction; M17.12 Unilateral primary osteoarthritis, left knee
CPT/HCPCS: 36415; 36600; 71045; 80048; 80061; 80076; 80305; 81003; 82375; 82550; 82553; 82728; 82805; 83036; 83540; 83550; 83605; 83735; 83880; 84100; 84145; 84439; 84443; 84484; 84550; 85025; 85027; 85379; 87426; 87804; 93005; 93970; 94640; 97162; 97166; 97530; 99291; J0456; J0696; J1650; J2470; J2919; J2920; J7512

== ENCOUNTER 2025-01-03 21:00 | Emergency (ER) | payer OTHER, MEDICAID ==
[~2025-01-03] VITALS: Ht 170.2 cm; Wt 90.0 kg
[~2025-01-03 21:00] MED LIST changes: +ALBU90AE3 INH; +AMLO10TA80 PO; -AMLO5TAB88 MT; +ATOR-2 MT; -ATOR-2 PO; +DABI110C PO; +FERR325T30 PO; -FLUT1AER4 INH; +FLUT1BLS9 IH; +HYDR12.54 MT; -LISI-186 PO; +LISI10TA26 PO; +OMEP20CA14 PO; +P20 PO; +TERA10CA4 PO; -TERA5CAP4 MT
[2025-01-03 21:07] VITALS: O2SAT 99
[2025-01-03 22:17] LABS: BASOPHILS % 0.8 % (0.0-2.0); EOSINOPHILS % 1.5 % (0.0-5.0); HEMATOCRIT. 34.5 % (42.0-52.0); HEMOGLOBIN. 10.9 g/dL (14.0-18.0); LYMPHOCYTES % 21.9 % (20.0-50.0); MEAN CORPUSCULAR HEMOGLOBIN 27.1 pg (28.0-32.0); MEAN CORPUSCULAR HGB CONC 31.7 g/dL (31.0-37.0); MEAN CORPUSCULAR VOLUME 85.6 fL (80.0-94.0); MEAN PLATELET VOLUME 8.3 fl (7.4-10.4); MONOCYTES % 11.3 % (2.0-8.0); NEUTROPHILS % 64.5 % (40.0-76.0); PLATELET 213 x1000/uL (130-400); RED BLOOD CELL COUNT 4.03 mill/uL (4.7-6.1); RED CELL DISTRIBUTION WIDTH 21.2 % (11.6-14.6); WHITE BLOOD COUNT 5.9 x1000/uL (4.5-11.0)
[2025-01-03 22:19] LABS: CHLORIDE 106 mEq/L (98-107); SODIUM 140 mEq/L (136-145)
[2025-01-03] MEDS: SODIUM CHLORIDE 0.9% 1,000 ML IV ONE (22:19)
[2025-01-03 22:20] LABS: CALCIUM 8.8 mg/dL (8.7-10.4); CARBON DIOXIDE 23 mEq/L (21-32)
[2025-01-03 22:25] LABS: CREATININE 1.1 mg/dL (0.6-1.3); GLUCOSE 105 mg/dL (70-105); UREA NITROGEN BLOOD 17 mg/dL (9-23)
[2025-01-03 22:26] LABS: TROPONIN I HIGH SENSITIVITY 10 ng/L (3.0-53)
[2025-01-03 22:27] LABS: ALANINE AMINOTRANSFERASE 8 IU/L (10-49); ALBUMIN 4.1 g/dL (3.2-4.8); ASPARTATE AMINOTRANSFERASE 14 IU/L (<34); BILIRUBIN DIRECT 0.1 mg/dL (<=3.0)
[2025-01-03 22:28] LABS: BILIRUBIN TOTAL 0.5 mg/dL (0.1-1.0); PROTEIN TOTAL 7.7 g/dL (6.0-8.3)
[2025-01-03 23:30] VITALS: TEMP 36.7
[2025-01-04] MEDS: AMLODIPINE 5MG TABLET PO ONE (01:19)
[2025-01-04] MEDS: HYDROCHLOROTHIAZIDE 12.5MG CAPSULE PO ONE (01:19)
[2025-01-04 01:20] VITALS: BP 128/56; PULSE 71; RESP 14; O2SAT 100
[2025-01-04 01:28] LABS: *AMPHETAMINES SCREEN URINE NEGATIVE (NEGATIVE); *BARBITURATES SCREEN URINE NEGATIVE (NEGATIVE); *BENZODIAZEPINES SCREEN URINE NEGATIVE (NEGATIVE); *COCAINE SCREEN URINE NEGATIVE (NEGATIVE); CANNABINOID URINE SCREEN NEGATIVE (NEGATIVE); ECSTASY MDMA SCREEN URINE NEGATIVE (NEGATIVE); METHADONE URINE SCREEN NEGATIVE (NEGATIVE); OPIATES URINE SCREEN NEGATIVE (NEGATIVE); PHENCYCLIDINE URINE SCREEN NEGATIVE (NEGATIVE)
== END 2025-01-04 01:46 | disposition short-term general hospital (02) ==
LOC: ER 21:00
DX: R53.1 Weakness (principal); R25.1 Tremor, unspecified; R26.9 Unspecified abnormalities of gait and mobility; I10 Essential (primary) hypertension; E78.5 Hyperlipidemia, unspecified; F03.90 Unspecified dementia, unspecified severity, without behavioral disturbance, psychotic disturbance, mood disturbance, and anxiety; I25.2 Old myocardial infarction; J45.909 Unspecified asthma, uncomplicated; Z79.51 Long term (current) use of inhaled steroids; Z79.52 Long term (current) use of systemic steroids; Z79.82 Long term (current) use of aspirin; Z79.899 Other long term (current) drug therapy; Z86.73 Personal history of transient ischemic attack (TIA), and cerebral infarction without residual deficits
CPT/HCPCS: 80076; 80048; 80320; 83880; 83690; 85025; 84484; 36415; 71045; 93005; 96360; 99285; 80305; J7030; G0480

== ENCOUNTER 2025-01-30 13:44 | Emergency (ER) | payer OTHER, MEDICAID ==
[~2025-01-30] VITALS: Ht 172.7 cm; Wt 98.0 kg
[2025-01-30 13:50] VITALS: TEMP 36.8; O2SAT 98
[2025-01-30 14:54] LABS: BASOPHILS % 0.6 % (0.0-2.0); EOSINOPHILS % 2.4 % (0.0-5.0); HEMATOCRIT. 33.3 % (42.0-52.0); HEMOGLOBIN. 10.9 g/dL (14.0-18.0); LYMPHOCYTES % 18.5 % (20.0-50.0); MEAN CORPUSCULAR HEMOGLOBIN 28.1 pg (28.0-32.0); MEAN CORPUSCULAR HGB CONC 32.8 g/dL (31.0-37.0); MEAN CORPUSCULAR VOLUME 85.9 fL (80.0-94.0); MONOCYTES % 12.9 % (2.0-8.0); NEUTROPHILS % 65.6 % (40.0-76.0); PLATELET 206 x1000/uL (130-400); RED BLOOD CELL COUNT 3.88 mill/uL (4.7-6.1); RED CELL DISTRIBUTION WIDTH 23.2 % (11.6-14.6); WHITE BLOOD COUNT 5.9 x1000/uL (4.5-11.0)
[2025-01-30 15:03] LABS: CHLORIDE 107 mEq/L (98-107); SODIUM 138 mEq/L (136-145)
[2025-01-30 15:04] LABS: CARBON DIOXIDE 23 mEq/L (21-32)
[2025-01-30 15:05] LABS: ADD RBC MORPHOLOGY YES; CALCIUM 8.4 mg/dL (8.7-10.4); DIFFERENTIAL COMMENT 1
[2025-01-30 15:06] LABS: INR 1.2; PROTHROMBIN TIME 12.7 sec (9.6-11.0)
[2025-01-30 15:09] LABS: CREATININE 1.1 mg/dL (0.6-1.3); GLUCOSE 98 mg/dL (70-105)
[2025-01-30 15:10] LABS: ETHANOL BLOOD < 10 mg/dL (<10); TROPONIN I HIGH SENSITIVITY 7 ng/L (3.0-53); UREA NITROGEN BLOOD 21 mg/dL (9-23)
[2025-01-30 15:11] LABS: ALANINE AMINOTRANSFERASE < 7 IU/L (10-49); ALBUMIN 3.9 g/dL (3.2-4.8); ASPARTATE AMINOTRANSFERASE 14 IU/L (<34)
[2025-01-30 15:12] LABS: BILIRUBIN DIRECT 0.2 mg/dL (<=3.0); BILIRUBIN TOTAL 0.6 mg/dL (0.1-1.0); PROTEIN TOTAL 7.4 g/dL (6.0-8.3)
[2025-01-30 15:51] LABS: ANISOCYTOSIS 1+; PLATELET ESTIMATE NORMAL
[2025-01-30 17:34] LABS: TROPONIN I HIGH SENSITIVITY 8 ng/L (3.0-53)
[2025-01-30 19:48] LABS: CLARITY URINE CLEAR (CLEAR); COLOR URINE YELLOW (YELLOW); GLUCOSE URINE NEGATIVE (NEGATIVE); KETONES URINE NEGATIVE (NEGATIVE); LEUKOCYTE ESTERASE URINE 2+ (NEGATIVE); NITRITE URINE NEGATIVE (NEGATIVE); OCCULT BLOOD URINE NEGATIVE (NEGATIVE); PROTEIN URINE NEGATIVE (NEGATIVE); SPECIFIC GRAVITY URINE 1.012 (1.005-1.030); UROBILINOGEN URINE 0.2 E.U./dL (0.2-1.0)
[2025-01-30 20:09] LABS: BACTERIA URINE NONE SEEN; RBC URINE NONE SEEN /hpf (0-2); SQUAMOUS EPITHELIAL CELL URINE RARE /lpf (RARE/1+)
[2025-01-30] MEDS ORDERED: CEFP100T8 MT (20:24)
[2025-01-30 22:34] VITALS: BP 190/81; PULSE 69; RESP 18; O2SAT 95
== END 2025-01-30 22:38 | disposition home or self-care (01) ==
LOC: ER 13:44
DX: N39.0 Urinary tract infection, site not specified (principal); E11.9 Type 2 diabetes mellitus without complications; I11.9 Hypertensive heart disease without heart failure; I25.10 Atherosclerotic heart disease of native coronary artery without angina pectoris; J45.909 Unspecified asthma, uncomplicated; F03.90 Unspecified dementia, unspecified severity, without behavioral disturbance, psychotic disturbance, mood disturbance, and anxiety; E78.5 Hyperlipidemia, unspecified; Z79.82 Long term (current) use of aspirin; Z79.52 Long term (current) use of systemic steroids; Z79.51 Long term (current) use of inhaled steroids; Z86.73 Personal history of transient ischemic attack (TIA), and cerebral infarction without residual deficits; Z99.3 Dependence on wheelchair; Z79.899 Other long term (current) drug therapy
CPT/HCPCS: 36415; 71045; 80048; 80076; 80320; 81003; 84484; 85025; 93005; 99285; G0480

== ENCOUNTER 2025-02-16 13:56 | Emergency (ER) | payer OTHER, MEDICAID ==
[~2025-02-16] VITALS: Ht 172.7 cm; Wt 86.0 kg
[~2025-02-16 13:56] MED LIST changes: +CEFP100T8 MT
[2025-02-16 14:14] VITALS: BP 125/57; PULSE 61; RESP 16; TEMP 36.8; O2SAT 99
[2025-02-16 16:07] LABS: BASOPHILS % 0.6 % (0.0-2.0); HEMATOCRIT. 34.8 % (42.0-52.0); HEMOGLOBIN. 11.4 g/dL (14.0-18.0); LYMPHOCYTES % 13.8 % (20.0-50.0); MEAN CORPUSCULAR HGB CONC 32.6 g/dL (31.0-37.0); MEAN CORPUSCULAR VOLUME 85.8 fL (80.0-94.0); MEAN PLATELET VOLUME 8.7 fl (7.4-10.4); NEUTROPHILS % 70.6 % (40.0-76.0); PLATELET 213 x1000/uL (130-400); RED BLOOD CELL COUNT 4.05 mill/uL (4.7-6.1); RED CELL DISTRIBUTION WIDTH 23.3 % (11.6-14.6); WHITE BLOOD COUNT 6.5 x1000/uL (4.5-11.0)
[2025-02-16 16:09] LABS: ADD RBC MORPHOLOGY YES; DIFFERENTIAL COMMENT 1
[2025-02-16 16:14] LABS: CHLORIDE 108 mEq/L (98-107); POTASSIUM 5.2 mEq/L (3.5-5.1); SODIUM 142 mEq/L (136-145)
[2025-02-16 16:15] LABS: CALCIUM 8.8 mg/dL (8.7-10.4); CARBON DIOXIDE 24 mEq/L (21-32)
[2025-02-16 16:20] LABS: GLUCOSE 110 mg/dL (70-105); UREA NITROGEN BLOOD 16 mg/dL (9-23)
[2025-02-16 16:22] LABS: ALANINE AMINOTRANSFERASE < 7 IU/L (10-49); ALBUMIN 4.2 g/dL (3.2-4.8); ASPARTATE AMINOTRANSFERASE 16 IU/L (<34); BILIRUBIN TOTAL 0.6 mg/dL (0.1-1.0); PROTEIN TOTAL 7.3 g/dL (6.0-8.3)
[2025-02-16 16:28] LABS: ANISOCYTOSIS 2+; PLATELET ESTIMATE NORMAL
[2025-02-16] MEDS: DIATR MEGLU/DIATRIZOATE SOLN 120ML ONE (17:54)
== END 2025-02-16 21:36 | disposition home or self-care (01) ==
LOC: ER 13:56
DX: R19.7 Diarrhea, unspecified (principal); I10 Essential (primary) hypertension; Z79.82 Long term (current) use of aspirin; Z79.899 Other long term (current) drug therapy
CPT/HCPCS: 99284; 74176; 80053; 85025; 36415; Q9963

== ENCOUNTER 2025-07-31 06:11 | Emergency (ER) | payer OTHER, MEDICAID ==
[~2025-07-31] VITALS: Ht 175.3 cm; Wt 100.0 kg
[2025-07-31 06:13] VITALS: O2SAT 93
[2025-07-31] MEDS: KETOROLAC 15MG/ML VIAL IV ONE (07:11)
[2025-07-31] MEDS: SODIUM CHLORIDE 0.9% 500 ML IV ONE (07:13)
[2025-07-31 08:25] LABS: BASOPHILS % 0.3 % (0.0-2.0); EOSINOPHILS % 2.3 % (0.0-5.0); HEMATOCRIT. 41.1 % (42.0-52.0); HEMOGLOBIN. 13.3 g/dL (14.0-18.0); LYMPHOCYTES % 14.9 % (20.0-50.0); MEAN PLATELET VOLUME 8.9 fl (7.4-10.4); MONOCYTES % 11.1 % (2.0-8.0); NEUTROPHILS % 71.4 % (40.0-76.0); PLATELET 197 x1000/uL (130-400); RED BLOOD CELL COUNT 4.46 mill/uL (4.7-6.1); RED CELL DISTRIBUTION WIDTH 17.4 % (11.6-14.6)
[2025-07-31 08:37] LABS: CREATININE 0.9 mg/dL (0.6-1.3)
[2025-07-31 08:38] LABS: UREA NITROGEN BLOOD 14 mg/dL (9-23)
[2025-07-31 08:39] LABS: ASPARTATE AMINOTRANSFERASE 17 IU/L (<34)
[2025-07-31 08:40] LABS: BILIRUBIN DIRECT 0.2 mg/dL (<=3.0); BILIRUBIN TOTAL 0.6 mg/dL (0.1-1.0); PROTEIN TOTAL 7.3 g/dL (6.0-8.3)
[2025-07-31 08:41] LABS: TROPONIN I HIGH SENSITIVITY 16 ng/L (3.0-53)
[2025-07-31] MEDS: ONDANSETRON HCL 4MG/2ML INJ IV ONE (08:53)
[2025-07-31 10:56] VITALS: TEMP 36.8
[2025-07-31 13:06] VITALS: BP 180/80; PULSE 91; RESP 12; O2SAT 99
== END 2025-07-31 13:31 | disposition home or self-care (01) ==
LOC: ER 06:11 → CMPBEDREQ 08-01 07:22
DX: R19.7 Diarrhea, unspecified (principal); M79.601 Pain in right arm; M79.602 Pain in left arm; G47.00 Insomnia, unspecified; I10 Essential (primary) hypertension; J45.909 Unspecified asthma, uncomplicated; M16.0 Bilateral primary osteoarthritis of hip; Z79.51 Long term (current) use of inhaled steroids; Z79.52 Long term (current) use of systemic steroids; Z79.82 Long term (current) use of aspirin; Z79.899 Other long term (current) drug therapy; Z86.73 Personal history of transient ischemic attack (TIA), and cerebral infarction without residual deficits
CPT/HCPCS: 99285; 74176; 96374; 96361; 96375; 80076; 80048; 83690; 85025; 84484; 36415; J1885; J2405; J7030

== ENCOUNTER 2025-08-10 17:49 | Emergency (ER) | payer OTHER, MEDICAID ==
[~2025-08-10] VITALS: Ht 172.7 cm; Wt 90.0 kg
[2025-08-10] MEDS: ALBUTEROL (0.083%) 2.5MG/3ML NEB HHN SCH (18:34)
[2025-08-10 18:37] VITALS: PULSE 56; RESP 18; O2SAT 100
[2025-08-10 18:59] LABS: BG DEOXYHEMOGLOBIN 21.4 % (0.0-5.0)
[2025-08-10] MEDS: AZITHROMYCIN 500MG/250ML 250 ML IV ONE (19:02)
[2025-08-10] MEDS: METHYLPREDNISOLONE SOD SUCC 125MG/2ML (ACT-O-VIAL) IV ONE (19:02)
[2025-08-10 19:06] LABS: BASOPHILS % 0.3 % (0.0-2.0); EOSINOPHILS % 2.0 % (0.0-5.0); HEMATOCRIT. 38.6 % (42.0-52.0); HEMOGLOBIN. 12.4 g/dL (14.0-18.0); LYMPHOCYTES % 16.3 % (20.0-50.0); MEAN PLATELET VOLUME 8.5 fl (7.4-10.4); MONOCYTES % 11.8 % (2.0-8.0); NEUTROPHILS % 69.6 % (40.0-76.0); PLATELET 222 x1000/uL (130-400); RED BLOOD CELL COUNT 4.17 mill/uL (4.7-6.1); RED CELL DISTRIBUTION WIDTH 16.7 % (11.6-14.6)
[2025-08-10 19:21] LABS: CREATININE 0.9 mg/dL (0.6-1.3); UREA NITROGEN BLOOD 12 mg/dL (9-23)
[2025-08-10 19:22] LABS: ASPARTATE AMINOTRANSFERASE 17 IU/L (<34); TROPONIN I HIGH SENSITIVITY 11 ng/L (3.0-53)
[2025-08-10 19:23] LABS: BILIRUBIN DIRECT 0.2 mg/dL (<=3.0); BILIRUBIN TOTAL 0.5 mg/dL (0.1-1.0); PROTEIN TOTAL 7.3 g/dL (6.0-8.3)
[2025-08-10] MEDS: LABETALOL 5MG/ML 4ML INJ IV ONE (22:13)
[2025-08-10 23:06] VITALS: BP 177/80; PULSE 60; RESP 16; TEMP 36.8; O2SAT 100
== END 2025-08-10 23:33 | disposition short-term general hospital (02) ==
LOC: ER 17:49 → CMPBEDREQ 08-11 07:34
DX: J44.89 Other specified chronic obstructive pulmonary disease (principal); R09.02 Hypoxemia; J98.11 Atelectasis; I10 Essential (primary) hypertension; Z79.899 Other long term (current) drug therapy; Z86.73 Personal history of transient ischemic attack (TIA), and cerebral infarction without residual deficits
CPT/HCPCS: 99285; 96365; 96366; 96375; 71045; 80076; 80048; 83880; 83735; 85025; 85379; 84484; 36415; 94640; 82375; 82803; 93005; J2919; J0456; J3490; 94664

== ENCOUNTER 2025-08-22 02:31 | Inpatient (IN) | payer OTHER, MEDICAID ==
[~2025-08-22] VITALS: Ht 170.2 cm; Wt 104.3 kg
[2025-08-22 03:17] LABS: BG BASE EXCESS -3.5 mmol/L (-2.0-3.0); BG CARBOXYHEMOGLOBIN 0.9 % (0.5-1.5); BG DEOXYHEMOGLOBIN 10.5 % (0.0-5.0); BG FRACTION INSPIRED OXYGEN 21; BG HCO3 ACT 21.1 mmol/L (21.0-28.0); BG METHEMOGLOBIN 0.2 % (0.5-1.5); BG OXYGEN SATURATION 89.4 % (94.0-98.0); BG OXYHEMOGLOBIN 88.4 % (94.0-98.0); BG PCO2 36.7 mmHg (35.0-48.0); BG PH 7.378 (7.350-7.450); BG PO2 58.7 mmHg (83.0-108.0); BG SAMPLE SITE RIGHT RADIAL; BG TOTAL HEMOGLOBIN 13.2 g/dL (13.5-17.5); BG VENT MODE ROOM AIR
[2025-08-22 03:56] LABS: BASOPHILS % 0.8 % (0.0-2.0); EOSINOPHILS % 2.7 % (0.0-5.0); HEMATOCRIT. 37.7 % (42.0-52.0); HEMOGLOBIN. 12.1 g/dL (14.0-18.0); LYMPHOCYTES % 33.1 % (20.0-50.0); MEAN PLATELET VOLUME 8.2 fl (7.4-10.4); MONOCYTES % 10.4 % (2.0-8.0); NEUTROPHILS % 53.0 % (40.0-76.0); PLATELET 223 x1000/uL (130-400); RED BLOOD CELL COUNT 4.09 mill/uL (4.7-6.1); RED CELL DISTRIBUTION WIDTH 17.5 % (11.6-14.6)
[2025-08-22 04:09] LABS: UREA NITROGEN BLOOD 18 mg/dL (9-23)
[2025-08-22 04:10] LABS: CREATININE 0.9 mg/dL (0.6-1.3); INR 1.1
[2025-08-22 04:12] LABS: ASPARTATE AMINOTRANSFERASE 19 IU/L (<34); BILIRUBIN DIRECT 0.1 mg/dL (<=3.0); BILIRUBIN TOTAL 0.5 mg/dL (0.1-1.0); PROTEIN TOTAL 6.8 g/dL (6.0-8.3)
[2025-08-22 04:14] LABS: TROPONIN I HIGH SENSITIVITY 14 ng/L (3.0-53)
[2025-08-22] MEDS: METHYLPREDNISOLONE SOD SUCC 125MG/2ML (ACT-O-VIAL) IV NR (04:44)
[2025-08-22 05:00] VITALS: PULSE 88; RESP 18; O2SAT 98
[2025-08-22] MEDS: ALBUTEROL (0.083%) 2.5MG/3ML NEB HHN ONE (05:00)
[2025-08-22] MEDS ORDERED: DOCUSATE SODIUM 100MG CAPSULE PO PRN (06:15)
[2025-08-22] MEDS ORDERED: ACETAMINOPHEN 325MG TABLET PO PRN (06:15)
[2025-08-22] MEDS ORDERED: ONDANSETRON HCL 4MG/2ML INJ IV PRN (06:15)
[2025-08-22] MEDS ORDERED: GUAIFENESIN 200MG/10ML SUGAR FREE UDC PO PRN (06:15)
[2025-08-22] MEDS ORDERED: ACETAMINOPHEN 650MG/20.3ML UDC GT PRN (06:15)
[2025-08-22 06:46] LABS: INFLUENZA TYPE A Presumptive Negative (Pres. Neg.); INFLUENZA TYPE B Presumptive Negative (Pres. Neg.)
[2025-08-22 07:01] LABS: RESPIRATORY SYNCYTIAL VIRUS Not Detected (Not Detectd)
[2025-08-22 07:44] LABS: CLARITY URINE CLEAR (CLEAR); COLOR URINE YELLOW (YELLOW); GLUCOSE URINE NEGATIVE (NEGATIVE); KETONES URINE NEGATIVE (NEGATIVE); LEUKOCYTE ESTERASE URINE NEGATIVE (NEGATIVE); NITRITE URINE NEGATIVE (NEGATIVE); OCCULT BLOOD URINE TRACE (NEGATIVE); PH URINE 5.5 (4.5-8.0); PROTEIN URINE TRACE (NEGATIVE); SPECIFIC GRAVITY URINE 1.013 (1.005-1.030); UROBILINOGEN URINE 0.2 E.U./dL (0.2-1.0)
[2025-08-22 07:50] LABS: *AMPHETAMINES SCREEN URINE NEGATIVE (NEGATIVE); *BARBITURATES SCREEN URINE NEGATIVE (NEGATIVE); *BENZODIAZEPINES SCREEN URINE NEGATIVE (NEGATIVE); *COCAINE SCREEN URINE NEGATIVE (NEGATIVE); CANNABINOID URINE SCREEN NEGATIVE (NEGATIVE); ECSTASY MDMA SCREEN URINE NEGATIVE (NEGATIVE); METHADONE URINE SCREEN NEGATIVE (NEGATIVE); OPIATES URINE SCREEN NEGATIVE (NEGATIVE); PHENCYCLIDINE URINE SCREEN NEGATIVE (NEGATIVE)
[2025-08-22] MEDS: CEFTRIAXONE 1GM/50ML 50 ML IV SCH (08:05)
[2025-08-22] MEDS: ASPIRIN 81MG EC TABLET PO SCH (08:12)
[2025-08-22] MEDS: LISINOPRIL 10MG TABLET PO SCH (08:12)
[2025-08-22] MEDS: AMLODIPINE 5MG TABLET PO SCH (08:12)
[2025-08-22] MEDS: METHYLPREDNISOLONE SOD SUCC 125MG/2ML (ACT-O-VIAL) IV SCH (08:18)
[2025-08-22 08:27] LABS: BACTERIA URINE NONE SEEN; SQUAMOUS EPITHELIAL CELL URINE 1+ /lpf (RARE/1+); WBC URINE 0-2 /hpf (0-2)
[2025-08-22 08:28] LABS: YEAST URINE NONE SEEN
[2025-08-22] MEDS: ENOXAPARIN 30MG/0.3ML SYR SUBCUT SCH (10:24)
[2025-08-22 11:00] VITALS: PULSE 66; RESP 16; O2SAT 99
[2025-08-22] MEDS: IPRATROPIUM/ALBUTEROL 0.5-3(2.5)MG/3ML NEB HHN PRN (11:00)
[2025-08-22 13:52] VITALS: BP 140/67; PULSE 75; RESP 18; TEMP 36.696
[2025-08-22 16:00] VITALS: BP 140/74; PULSE 74; RESP 20; TEMP 36.7; O2SAT 98
[2025-08-22 17:10] LABS: TROPONIN I HIGH SENSITIVITY 14 ng/L (3.0-53)
[2025-08-22 20:00] VITALS: BP 167/80; PULSE 67; RESP 20; TEMP 36.1; O2SAT 97
[2025-08-22] MEDS: ATORVASTATIN CALCIUM 40MG TABLET PO SCH (20:40)
[2025-08-22] MEDS: IPRATROPIUM BROMIDE (0.02%) 0.5MG/2.5ML NEB HHN SCH (21:31)
[2025-08-22 21:34] VITALS: PULSE 72; RESP 18; O2SAT 99
[2025-08-22 23:49] LABS: TROPONIN I HIGH SENSITIVITY 14 ng/L (3.0-53)
[2025-08-23] VITALS (9 sets, daily range): BP systolic 116–175; BP diastolic 67–93; PULSE 54–90; RESP 18–20; TEMP 36.1–36.9; O2SAT 98–99
[2025-08-23 06:43] LABS: BASOPHILS % 0.0 % (0.0-2.0); EOSINOPHILS % 0.0 % (0.0-5.0); HEMATOCRIT. 36.4 % (42.0-52.0); HEMOGLOBIN. 11.9 g/dL (14.0-18.0); LYMPHOCYTES % 9.1 % (20.0-50.0); MEAN PLATELET VOLUME 8.5 fl (7.4-10.4); MONOCYTES % 4.0 % (2.0-8.0); NEUTROPHILS % 86.9 % (40.0-76.0); PLATELET 196 x1000/uL (130-400); RED BLOOD CELL COUNT 3.93 mill/uL (4.7-6.1); RED CELL DISTRIBUTION WIDTH 17.1 % (11.6-14.6)
[2025-08-23 07:15] LABS: T4 FREE 1.48 ng/dL (0.89-1.76); TRIGLYCERIDE 53 mg/dL (0-150)
[2025-08-23 07:16] LABS: LDL CHOLESTEROL 65 mg/dL (5-100)
[2025-08-23 09:16] LABS: CREATININE 0.8 mg/dL (0.6-1.3)
[2025-08-23 09:17] LABS: UREA NITROGEN BLOOD 17 mg/dL (9-23)
[2025-08-23 09:18] LABS: TROPONIN I HIGH SENSITIVITY 14 ng/L (3.0-53)
[2025-08-23] MEDS: CEFTRIAXONE 1GM/50ML 50 ML IV SCH (12:29)
[2025-08-23] MEDS: AMLODIPINE 5MG TABLET PO SCH (20:18)
[2025-08-23] MEDS: HYDRALAZINE 20MG/ML VIAL IV NR (22:59)
[2025-08-24] VITALS: BP 157/73; PULSE 72; RESP 18; TEMP 36.3; O2SAT 98
[2025-08-24 01:28] VITALS: BP 157/73; PULSE 72; RESP 18; TEMP 97.3
[2025-08-24 09:07] LABS: FOLATE HEMATOCRIT 38.7 % (37.5-51.0)
[2025-08-25 13:12] LABS: FOLATE HEMOLYSATE 491.0 ng/mL (Not Estab.); FOLATE RBC 1269 ng/mL (>498)
== END 2025-08-24 01:20 | disposition short-term general hospital (02) | DRG 189 ==
LOC: ER 02:31 → 8WST 04:23 → EDBEDREQSVC 04:46 → EDBEDREQ 04:46 → EDBEDREQTM 04:46
PROVIDERS: ADMIT Hospitalist; ATTEND Hospitalist
DX: J96.01 Acute respiratory failure with hypoxia (principal); E87.0 Hyperosmolality and hypernatremia; I50.9 Heart failure, unspecified; J44.9 Chronic obstructive pulmonary disease, unspecified; I35.0 Nonrheumatic aortic (valve) stenosis; D50.9 Iron deficiency anemia, unspecified; F03.90 Unspecified dementia, unspecified severity, without behavioral disturbance, psychotic disturbance, mood disturbance, and anxiety; I70.0 Atherosclerosis of aorta; I10 Essential (primary) hypertension; J45.901 Unspecified asthma with (acute) exacerbation; J98.11 Atelectasis; Z74.01 Bed confinement status; Z87.891 Personal history of nicotine dependence; Z87.01 Personal history of pneumonia (recurrent); Z86.73 Personal history of transient ischemic attack (TIA), and cerebral infarction without residual deficits; Z86.711 Personal history of pulmonary embolism; Z79.899 Other long term (current) drug therapy; N40.0 Benign prostatic hyperplasia without lower urinary tract symptoms; M16.12 Unilateral primary osteoarthritis, left hip; I25.10 Atherosclerotic heart disease of native coronary artery without angina pectoris; M10.9 Gout, unspecified
CPT/HCPCS: 36415; 36600; 71045; 80048; 80061; 80076; 80305; 80320; 81003; 82375; 82550; 82728; 82747; 82805; 83540; 83550; 83735; 83880; 84439; 84443; 84481; 84484; 85014; 85025; 85379; 87070; 87420; 87426; 87804; 93005; 93306; 93970; 94070; 94640; 94664; 98960; 99285; J0360; J0696; J1650; J2919; G0480

== ENCOUNTER 2025-09-14 10:24 | Emergency (ER) | payer OTHER, MEDICAID ==
[~2025-09-14] VITALS: Ht 182.9 cm; Wt 123.0 kg
[2025-09-14 10:26] VITALS: O2SAT 94
[2025-09-14 11:10] LABS: BASOPHILS % 0.5 % (0.0-2.0); EOSINOPHILS % 0.7 % (0.0-5.0); HEMATOCRIT. 35.2 % (42.0-52.0); HEMOGLOBIN. 11.5 g/dL (14.0-18.0); LYMPHOCYTES % 7.8 % (20.0-50.0); MEAN PLATELET VOLUME 8.1 fl (7.4-10.4); MONOCYTES % 8.7 % (2.0-8.0); NEUTROPHILS % 82.3 % (40.0-76.0); PLATELET 161 x1000/uL (130-400); RED BLOOD CELL COUNT 3.77 mill/uL (4.7-6.1); RED CELL DISTRIBUTION WIDTH 17.5 % (11.6-14.6)
[2025-09-14 11:41] LABS: CREATININE 0.9 mg/dL (0.6-1.3); UREA NITROGEN BLOOD 14 mg/dL (9-23)
[2025-09-14 11:42] LABS: TROPONIN I HIGH SENSITIVITY 15 ng/L (3.0-53)
[2025-09-14] MEDS ORDERED: ENALAPRIL 2.5MG/2ML VIAL 2ML IV ONE (12:00)
[2025-09-14] MEDS: FUROSEMIDE 40MG/4ML VIAL IVP ONE (12:32)
[2025-09-14] MEDS: ENALAPRIL 1.25MG/ML VIAL 1ML IV ONE (12:33)
[2025-09-14 14:05] LABS: TROPONIN I HIGH SENSITIVITY 16 ng/L (3.0-53)
[2025-09-14 15:39] VITALS: BP 123/77; PULSE 77; RESP 17; TEMP 37; O2SAT 94
== END 2025-09-14 15:39 | disposition short-term general hospital (02) ==
LOC: ER 10:24 → CANBEDREQ 13:29 → ER 15:39
DX: I50.31 Acute diastolic (congestive) heart failure (principal); I11.0 Hypertensive heart disease with heart failure; Z86.73 Personal history of transient ischemic attack (TIA), and cerebral infarction without residual deficits; Z79.899 Other long term (current) drug therapy
CPT/HCPCS: 99285; 96374; 71045; 96375; 80048; 85025; 84484; 36415; 93005; J3490; J1938

== ENCOUNTER 2025-09-21 07:06 | Emergency (ER) | payer OTHER, MEDICAID ==
[~2025-09-21] VITALS: Ht 177.8 cm; Wt 99.0 kg
[2025-09-21 07:08] VITALS: O2SAT 99
[2025-09-21 08:31] VITALS: TEMP 98.6
[2025-09-21 08:33] LABS: MEAN PLATELET VOLUME 8.8 fl (7.4-10.4); PLATELET 150 x1000/uL (130-400)
[2025-09-21 08:37] LABS: BASOPHILS % 0.4 % (0.0-2.0); EOSINOPHILS % 1.6 % (0.0-5.0); HEMATOCRIT. 34.9 % (42.0-52.0); HEMOGLOBIN. 11.4 g/dL (14.0-18.0); LYMPHOCYTES % 13.5 % (20.0-50.0); MONOCYTES % 11.2 % (2.0-8.0); NEUTROPHILS % 73.3 % (40.0-76.0); RED BLOOD CELL COUNT 3.69 mill/uL (4.7-6.1); RED CELL DISTRIBUTION WIDTH 17.8 % (11.6-14.6)
[2025-09-21 08:53] LABS: CREATININE 0.9 mg/dL (0.6-1.3); UREA NITROGEN BLOOD 8 mg/dL (9-23)
[2025-09-21 08:54] LABS: ETHANOL BLOOD < 10 mg/dL (<10); TROPONIN I HIGH SENSITIVITY 16 ng/L (3.0-53)
[2025-09-21 13:00] VITALS: BP 161/93; PULSE 69; RESP 15; O2SAT 97
== END 2025-09-21 13:46 | disposition short-term general hospital (02) ==
LOC: ER 07:06 → CANBEDREQ 11:12 → ER 13:46
DX: R06.02 Shortness of breath (principal); R25.1 Tremor, unspecified; J44.89 Other specified chronic obstructive pulmonary disease; I10 Essential (primary) hypertension; Z79.01 Long term (current) use of anticoagulants; Z79.82 Long term (current) use of aspirin; Z86.73 Personal history of transient ischemic attack (TIA), and cerebral infarction without residual deficits; Z79.899 Other long term (current) drug therapy
CPT/HCPCS: 80048; 80320; 83880; 83735; 85025; 85379; 84484; 36415; 71045; 93005; 99285; A4615; A4606; G0480